=== PATIENT | male | born 1940 | race Caucasian/White ===

== ENCOUNTER 2021-08-21 11:30 | Emergency (ER) | payer MEDICARE ==
[2021-08-21 12:54] LABS: HEMOGLOBIN 15.9 gm/dl (14.0-17.5); RED BLOOD COUNT 5.13 M/UL (4.20-5.50); WHITE BLOOD COUNT 5.5 K/UL (4.5-11.0)
[2021-08-21 13:21] LABS: BUN/CREATININE RATIO 13 (0-10)
== END 2021-08-21 13:35 | disposition left against medical advice (07) ==
LOC: ER1 11:30
PROVIDERS: Student in an Organized Health Care Education/Training Program
DX: R55 Syncope and collapse (principal); Z20.822 Contact with and (suspected) exposure to COVID-19
CPT/HCPCS: 71045; 80053; 82550; 82553; 83874; 84484; 85025; 93005; 99282; 99284; U0002